=== PATIENT | male | born 1995 | race Hispanic/Latino ===

== ENCOUNTER 2019-10-01 17:26 | Emergency (ER) | payer OTHER, SELFPAY ==
--- NOTE | ~2019-10-01 | XR_ITS ---
EXAMINATION: XR chest 2V EXAM DATE: 10/01/2019 18:16 INDICATION: Shortness of breath for one week. TECHNIQUE: Frontal and lateral projections of the chest obtained and reviewed. Comparison is made to prior examination from 12/15/2003. FINDINGS: The lungs are clear. There are no pleural effusions. The cardiomediastinal silhouette is within normal limits. There is no pneumothorax suspected. The bones and soft tissues are unremarkab le. IMPRESSION: Normal chest x-ray exam. Reviewed, dictated and finalized at location A. IMPRESSION: Normal chest x-ray exam.
[2019-10-01 17:32] VITALS: BP 133/89; PULSE 69; RESP 14; TEMP 36.7; O2SAT 99
--- NOTE | 2019-10-01 17:35 | ED.CHESTPAIN ---
HPI - Chest Pain General Chief Complaint: Chest Pain Stated Complaint: CP/SOB FOR WEEKS Time Seen by Provider: 10/01/19 17:35 Source: patient Mode of arrival: ambulatory Limitations: no limitations History of Present Illness HPI narrative: Patient is a 23-year-old male who presents for evaluation of shortness of breath. Patient reports a 2-week history of worsening shortness of breath that is constant. Patient states that it is worsened when he is at work or with exertion. He denies current chest pain, but states at times her been chest pain associated with the shortness of breath. No nausea, vomiting or diaphoresis. No leg swelling or pain. No cough or pleuritic chest pain. No recent travel. Patient states he has had dry eyes and may be some sinus drainage which is also worsening his symptoms. He states he was evaluated at [facility] emergency department with a negative work-up and discharged home to her primary care physician who he followed up with and diagnosed him with anxiety and put him on anxiety medications. Patient states he has been taking these medications without improvement in his symptoms. No history of asthma. No fever or chills. No productive cough. No recent surgery or recent immobility. No history of coagulopathies, no sudden cardiac in the family, no palpitations. Related Data Home Medications Medication Instructions Recorded Confirmed buspirone mg 10/01/19 Allergies Allergy/AdvReac Type Severity Reaction Status Date / Time poison valerie extract Allergy Mild Rash Verified 10/01/19 17:37 Review of Systems Review of Systems: Narrative: CONSTITUTIONAL: Denies fever, chills, or sweats. EYES: Denies visual changes, redness, or discharge. ENT: Denies rhinorrhea, congestion, sore throat, or otalgia. CARDIOVASCULAR: Denies current chest pain, palpitations, or edema. RESPIRATORY: Reports cough and shortness of breath GASTROINTESTINAL: Denies abdominal pain, nausea, vomiting, or diarrhea. GENITOURINARY: Denies dysuria or hematuria. SKIN: Denies rash or itching. MUSCULOSKELETAL: Denies back pain, joint pain, or myalgia. NEUROLOGIC: Denies headache, numbness, or weakness. PSYCHIATRIC: Denies anxiety or depression. [facility] Past Medical History Medical History (Updated 10/01/19 @ 18:31 by Trista Vanegas MD) Folliculitis Surgical History Surgical History (Updated 10/01/19 @ 17:52 by Trista Vanegas MD) No pertinent past surgical history Social History Social History (Updated 10/01/19 @ 17:52 by Trista Vanegas MD) Smoking status: Never smoker Second hand tobacco smoke exposure: No Alcohol intake: current Substance use: never Gender identity (if verbalized by the patient): Male Exam Narrative: Exam Narrative: GENERAL: Awake, alert, conversant HEAD: Normocephalic, atraumatic. EYES: PERRLA and EOMI. ENT: Nares clear, no rhinorrhea or epistaxis. Mucous membranes moist. NECK: Supple. CHEST: No respiratory distress, breathing even and non labored, no audible wheezing, no tachypnea HEART: Regular rate, sinus rhythm ABDOMEN:Non distended, non tender EXTREMITIES: Normal range of motion. No edema. SKIN: Warm, dry, no rash. NEURO:No focal deficits. Alert and oriented x3 Course Vital Signs Vital signs: Vital Signs Temperature 36.7 C 10/01/19 17:32 Pulse Rate 69 10/01/19 17:32 Respiratory Rate 14 10/01/19 17:32 Blood Pressure 133/89 10/01/19 17:32 Pulse Oximetry 99 10/01/19 17:32 Temperature 36.7 C 10/01/19 17:32 Pulse Rate 74 10/01/19 18:02 Respiratory Rate 19 10/01/19 18:02 Blood Pressure 133/89 10/01/19 17:32 Pulse Oximetry 99 10/01/19 17:32 MDM - Chest Pain MDM Narrative Medical decision making narrative: Patient presented for evaluation of shortness of breath. At the time of initial assessment ABCs are intact, vital signs are stable. Patient has no tachypnea, hypoxemia, increased work of breathing or abnormal resp
--- NOTE | 2019-10-01 17:36 | ECG_ITS ---
Measurements Intervals [place] Rate: 74 P: 48 [place]: 162 QRS: 32 QRSD: 105 T: 48 QT: 359 QTc: 401 Interpretive Statements SINUS RHYTHM NORMAL ECG Electronically Signed On 10-02-2019 7:14:34 CDT by Moses Mg D.O.
[2019-10-01 17:45] LABS: Basophils Absolute Auto 0.1 K/mm3 (0.0-0.1); Basophils Percent Auto 0.6 % (0.2-1.2); Eosinophils Absolute Auto 0.4 K/mm3 (0-0.3); Eosinophils Percent Auto 4.6 % (0-4.4); Hematocrit 46.3 % (42.0-52.0); Hemoglobin 15.8 g/dL (14.0-18.0); Immature Granulocyte Absolute 0.02 K/mm3 (0.00-0.031); Immature Granulocyte Percent A 0.2 % (0-0.5); Lymphocytes Absolute Auto 2.52 K/mm3 (0.9-3.2); Lymphocytes Percent Auto 29.8 % (18.3-44.2); Mean Corpuscular HGB Conc 34.1 g/dl (32-36); Mean Corpuscular Hemoglobin 30.2 pg (26-34); Mean Corpuscular Volume 88.4 fl (80-100); Mean Platelet Volume 9.8 fl (7.4-10.4); Monocytes Absolute Auto 0.9 K/mm3 (0.1-0.6); Neutrophils Absolute Auto 4.6 K/mm3 (1.3-6.7); Neutrophils Percent Auto 54.8 % (45.5-73.1); Platelet Count Result 278 k/mm3 (150-375); Red Blood Count 5.24 M/mm3 (4.6-6.20); Red Cell Distribution Width 12.7 % (11.5-14.5); White Blood Count 8.5 K/mm3 (4.5-10.0)
[2019-10-01] MEDS: ASPIRIN 81 MG CHEWABLE TABLET 324 MG PO (17:51)
[2019-10-01 17:52] VITALS: PULSE 68
[2019-10-01 17:54] LABS: Prothrombin Time 12.4 Seconds (11.1-14.7)
[2019-10-01 17:55] LABS: Partial Thromboplastin Time 26.9 SECONDS (22.3-36.8)
[2019-10-01 17:56] LABS: Blood Urea Nitrogen 17 mg/dL (9-20); Calcium 9.6 mg/dL (8.4-10.2); Carbon Dioxide 28 mmol/L (22-30); Chloride 102 mmol/L (98-107); Estimated CRCL calculation 136 ml/min; Estimated Glomerular Filt Rate > 60; Glucose 98 mg/dL (75-110); Potassium 3.8 mmol/L (3.4-5.0); Sodium 139 mmol/L (137-145)
[2019-10-01 18:02] VITALS: PULSE 74; RESP 19
[2019-10-01] MEDS: IPRATROPIUM BR 0.02% INH SOLN 0.5 MG/2.5 ML VIAL 1 MG INHALATION (18:02)
[2019-10-01] MEDS: ALBUTEROL SULFATE NEB 2.5 MG/0.5 ML INH 5 MG INHALATION (18:02)
[2019-10-01 18:07] LABS: Troponin I < 0.012 ng/mL (0.000-0.034)
[2019-10-01 18:37] LABS: NT Pro B Type Natriuretic Pept 26 PG/ML (5-100)
[2019-10-01 18:44] LABS: D Dimer 0.27 ug/mL (<0.48)
[2019-10-01 19:08] VITALS: BP 125/76; PULSE 82; RESP 19; O2SAT 97
== END 2019-10-01 19:09 | disposition home or self-care (01) ==
PROVIDERS: Emergency Provider Emergency Medicine
DX: R06.00 Dyspnea, unspecified (principal)
CPT/HCPCS: 36415; 71046; 80048; 83880; 84484; 85025; 85380; 85610; 85730; 93005; 94640; 99284; A9270